=== PATIENT | male | born 1965 | race Caucasian/White ===

== ENCOUNTER 2018-07-06 05:57 | Day surgery (SDC) | payer OTHER ==
[2018-07-06] MEDS ORDERED: PROPOFOL 40 ML (09:54)
[2018-07-06] MEDS ORDERED: LIDOCAINE 100 MG SYRINGE (09:54)
== END 2018-07-06 14:44 | disposition home or self-care (01) ==
LOC: GIL 05:57
DX: Z12.11 Encounter for screening for malignant neoplasm of colon (principal); K62.1 Rectal polyp; D12.6 Benign neoplasm of colon, unspecified; K57.90 Diverticulosis of intestine, part unspecified, without perforation or abscess without bleeding; K64.4 Residual hemorrhoidal skin tags; K64.8 Other hemorrhoids; E78.5 Hyperlipidemia, unspecified
CPT/HCPCS: 45380; 88305